=== PATIENT | female | born 1990 | race Asian ===

== ENCOUNTER 2019-02-24 11:13 | Day surgery (SDC) | payer BC ==
[2019-02-24] MEDS: LACTATED RINGER'S 1,000 ML (ENTER RATE) IV (12:00)
[2019-02-24 12:12] LABS: ADD MAN DIFF? NO
[2019-02-24 12:21] LABS: BASOPHILS % 0.3 % (0.0-2.0); EOSINOPHILS # 0.4 10^3/ul (0.0-0.5); EOSINOPHILS % 3.4 % (0.0-7.0); HEMATOCRIT 34.5 % (37.0-47.0); HEMOGLOBIN 10.9 g/dl (12.0-16.0); LYMPHOCYTES % 17.5 % (15.0-51.0); MEAN CORPUSCULAR HEMOGLOBIN 27.9 pg (29.0-33.0); MEAN CORPUSCULAR HGB CONC 31.6 g/dl (32.0-37.0); MEAN CORPUSCULAR VOLUME 88.5 fl (82.0-101.0); MEAN PLATELET VOLUME 9.3 fl (7.4-10.4); MONOCYTE # 0.8 10^3/ul (0.3-0.9); MONOCYTES % 6.5 % (0.0-11.0); NEUTROPHIL # 8.3 10^3/ul (1.6-7.5); PLATELET COUNT 240 10^3/UL (140-415); RED CELL DISTRIBUTION WIDTH 12.4 % (11.5-14.5)
[2019-02-24 12:21] LABS: WHITE BLOOD COUNT 11.5 10^3/ul (4.8-10.8)
[2019-02-24] MEDS ORDERED: PROPOFOL 20 ML ×2 (13:55→13:57)
[2019-02-24] MEDS ORDERED: MIDAZOLAM 1 MG/ML 2 ML INJ (13:56)
[2019-02-24] MEDS ORDERED: FENTAnyl 50 MCG/ML VIAL (13:56)
[2019-02-24] MEDS: CEFAZOLIN 2 GM/50 ML (PMX) 50 ML IVPB (14:20)
[2019-02-24] MEDS ORDERED: CEFAZOLIN 1 GM INJ (14:24)
[2019-02-24] MEDS ORDERED: VASOPRESSIN 20 UNITS INJ ×2 (14:24→14:27)
[2019-02-24] MEDS ORDERED: KETOROLAC 30 MG INJ (14:48)
[2019-02-24] MEDS: HYDROmorphONE 1 MG/5 ML IV SYRINGE IV (14:56)
[2019-02-24] MEDS: ONDANSETRON 4 MG INJ IV ×2 (14:56→16:50)
[2019-02-24] MEDS: KETOROLAC 30 MG INJ IV (14:56)
[2019-02-24] MEDS ORDERED: OXYCODONE/ACETAMINOPHEN (5/325) TAB PO (15:00)
[2019-02-24] MEDS: OXYTOCIN 30 UNITS/LR 500 ML IV (15:07)
== END 2019-02-24 18:03 | disposition home or self-care (01) ==
LOC: SDS 11:13
DX: O02.1 Missed abortion (principal)
CPT/HCPCS: 59820; 84703; 85025; 86850; 86900; 86901; 88305